=== PATIENT | female | born 1990 | race Caucasian/White ===

== ENCOUNTER 2018-07-13 08:29 | Emergency (ER) | payer MEDICAID ==
--- NOTE | 2018-07-13 08:53 | EDM.PDOC ---
ED HPI GENERAL MEDICAL PROBLEM - General Stated Complaint: SWOLLEN FACE Time Seen by Provider: 07/13/18 08:29 Source of Information: Reports: Patient History Limitations: Reports: No Limitations - History of Present Illness INITIAL COMMENTS - FREE TEXT/NARRATIVE: 28 y.o.w.f in prev healthy condition came to the ed because of right facial swelling for 3 days. Pt was seen in the cling and given Abx without improvement. The swelling of he right face is getting worse. Pt was not able to find a dentist as of yet. No F/C no N/V/D, no Trauma to face. No CP, no SOB, no other acute med issues. BP 153/100 Pulse 111 RR 18 Pulse ox 98% on RA Temp 36.7 Onset Date: 07/11/18 Onset Time: 08:00 Duration: Day(s):, Getting Worse, Intermittent Location: Reports: Face Quality: Reports: Dull, Pressure Severity: Moderate Improves with: Reports: Rest Worsens with: Reports: Movement Context: Reports: Other (poor dentition) Associated Symptoms: Reports: No Other Symptoms Treatments RN MEDICAL INPATIENT SERVICES: Reports: Acetaminophen, Other (see below) (Augmentin) Right Face/Facial Pain Score (Numeric/FACES): 4 - Related Data Allergies Allergy/AdvReac Type Severity Reaction Status Date / Time No Known Allergies Allergy Verified 07/13/18 09:02 Home Meds: Home Meds Amoxicillin/Potassium Clav [Amox-Clav 875-125 mg Tablet] 1 tab PO Q6H 07/13/18 [ History] Hydrocodone/Acetaminophen [Hydrocodon-Acetaminophen 5-325] 1 tab PO BID [History] ED ROS ENT - Review of Systems Review Of Systems: See Below Constitutional: Reports: No Symptoms HEENT: Reports: Dental Pain, Other (swelling of left face) Respiratory: Reports: No Symptoms Cardiovascular: Reports: No Symptoms Endocrine: Reports: No Symptoms GI/Abdominal: Reports: No Symptoms : Reports: No Symptoms Musculoskeletal: Reports: No Symptoms Skin: Reports: No Symptoms Neurological: Reports: No Symptoms Psychiatric: Reports: No Symptoms Hematologic/Lymphatic: Reports: No Symptoms Immunologic: Reports: No Symptoms ED EXAM, ENT - Physical Exam Exam: See Below Exam Limited By: No Limitations General Appearance: Alert, WD/WN, Mild Distress Eye Exam: Bilateral Eye: Normal Inspection Ears: Normal External Exam, Normal Canal, Hearing Grossly Normal Nose: Normal Inspection, Normal Mucousa, No Blood Mouth/Throat: Normal Gums, Normal Lips, Normal Oropharynx, Dental Tenderness, Other (right buccal swelling) Head: Atraumatic, Facial Swelling (right face) Neck: Normal Inspection, Supple, Non-Tender, Full Range of Motion Respiratory/Chest: No Respiratory Distress, Lungs Clear, Normal Breath Sounds, Chest Non-Tender Cardiovascular: Normal Peripheral Pulses, Regular Rate, Rhythm, No Edema GI/Abdominal: Normal Bowel Sounds, Soft, Non-Tender, No Organomegaly, Pelvis Stable (Female) Exam: Deferred Rectal (Female) Exam: Deferred Back: Normal Inspection, Full Range of Motion Extremities: Normal Inspection, Normal Range of Motion, Non-Tender, No Pedal Edema, Normal Capillary Refill Neurological: Alert, Oriented, CN II-XII Intact, Normal Cognition, Normal Gait Psychiatric: Normal Affect, Normal Mood Skin: Warm, Dry, Intact, Normal Color, Rash (right face) Lymphatic: No Adenopathy Course - Vital Signs Text/Narrative:: 28 y.o.w.f in prev healthy condition came to the ed because of right facial swelling for 3 days. Pt was seen in the cling and given Abx without improvement. The swelling of he right face is getting worse. Pt was not able to find a dentist as of yet. No F/C no N/V/D, no Trauma to face. No CP, no SOB, no other acute med issues. BP 153/100 Pulse 111 RR 18 Pulse ox 98% on RA Temp 36.7 PE: WNWDW F with dental pain and left facial swelling Imaging: CT MaxFacial: Possible abscess tooth 5 and 6, cellulitis right face, as per RAD labs: CBC, BMP including Lactic acid: All Nl Impression: Toothache, Tooth abscess #5 and 6 Tx: Motrin 600mg, ICE. Pt took Augmentin for 1 day Reexam: Improved Plan: D/C with instructions Last Recorded V/S: Last Vital Signs Temp 36.7 C 07/13/18 08:29 Pulse 73 07/13/18 09:58 Resp 18 07/13/18 09:58 BP 117/70 07/13/18 09:58 Pulse Ox 100 07/13/18 09:58 - Orders/Labs/Meds Orders: Active Orders 24 hr Category Date Time Status Cooling Warming Measures [RC] ASDIRECTED Care 07/13/18 09:57 Active Ice Bag [Ice Therapy] [OM.PC] Routine Oth 07/13/18 09:57 Ordered Labs: Laboratory Tests 07/13/18 07/13/18 07/13/18 Range/Units 08:41 08:41 08:41 WBC 9.5 (4.5-12.0) X10-3/uL RBC 4.46 (3.23-5.20) x10(6)uL Hgb 14.0 (11.5-15.5) g/dL Hct 41.0 (30.0-51.3) % MCV 92.0 (80-96) fL MCH 31.4 (27.7-33.6) pg MCHC 34.1 (32.2-35.4) g/dL RDW 13.7 (11.5-15.5) % Plt Count 220 (125-369) X10(3)uL MPV 8.5 (7.4-10.4) fL Neut % (Auto) 71.6 (46-82) % Lymph % (Auto) 18.7 (13-37) % Schuyler % (Auto) 7.2 (4-12) % Eos % (Auto) 0 L (1.0-5.0) % Baso % (Auto) 2 (0-2) % Neut # (Auto) 6.8 (1.6-8.3) # Lymph # (Auto) 1.8 (0.6-5.0) # Schuyler # (Auto) 0.7 (0.0-1.3) # Eos # (Auto) 0.0 (0.0-0.8) # Baso # (Auto) 0.2 (0.0-0.2) # Sodium 138 (135-145) mmol/L Potassium 4.4 (3.5-5.3) mmol/L Chloride 103 (100-110) mmol/L Carbon Dioxide 27 (21-32) mmol/L BUN 18 (7-18) mg/dL Creatinine 0.9 (0.55-1.02) mg/dL Est Cr Clr Drug Dosing TNP Estimated GFR (MDRD) > 60 (>60) BUN/Creatinine Ratio 20.0 (9-20) Glucose 110 (80-116) mg/dL Lactic Acid 0.6 (0.4-2.2) mmol/L Calcium 9.1 (8.6-10.2) mg/dL Meds: Medications Discontinued Medications Generic Name Dose Route Start Last Admin Trade Name Curtis PRN Reason Stop Dose Admin Ibuprofen 600 mg 07/13/18 09:56 07/13/18 10:03 Motrin PO 07/13/18 09:57 600 mg ONETIME STA Administration Iopamidol 75 ml 07/13/18 09:02 07/13/18 09:15 Isovue-370 (76%) IV 07/13/18 09:03 75 ml ONETIME ONE Administration Departure - Departure Time of Disposition: 10:19 Disposition: Home, Self-Care 01 Condition: Good Clinical Impression: Tooth abscess - Discharge Information Instructions: Dental Abscess Referrals: PCP,None [Primary Care Provider] - Forms: ED Department Discharge Additional Instructions: Please cont your ABX, Please take motrin for pain. Apply ICE to right cheek, please f/u with a dentist a.s.a.pPlease come back if your symptoms get worse acutely - My Orders Last 24 Hours: My Active Orders 07/13/18 09:57 Cooling Warming Measures [RC] ASDIRECTED Ice Bag [Ice Therapy] [OM.PC] Routine - Assessment/Plan Last 24 Hours: My Active Orders 07/13/18 09:57 Cooling Warming Measures [RC] ASDIRECTED Ice Bag [Ice Therapy] [OM.PC] Routine
[2018-07-13] MEDS ORDERED: Iopamidol 755 Mg/ML 75 ML Bottle IV ONE (09:02)
[2018-07-13] MEDS ORDERED: Ibuprofen 600 MG Tab PO STA (09:56)
--- NOTE | 2018-07-13 11:08 | CT ---
INDICATION: Swollen right face, additional history of dental abscess, on antibiotics. CT MAXILLOFACIAL: Spiral axial imaging of the maxillofacial area with sagittal and coronal reconstructions was obtained 07/13/18 - no comparisons. Total exam DLP = 703.72 mGy-cm. At the first and second maxillary premolars, there are large dental caries, which are mirrored along the posterior and anterior aspects of those teeth respectively. The larger dental caries is in the second premolar. The immediate maxillary area surrounding those teeth appears intact. However, more superiorly at the lateral root of the first premolar, there is a small surrounding area of loss of cortex of the maxilla with decreased density. This may be an anatomic variant but could represent a small abscess formation. There does appear to be adjacent soft tissue increase in density, raising suspicion for an abscess in this area. Additionally, more peripherally to the teeth in the cheek area, there is extensive fat stranding, which extends laterally and posteriorly, somewhat inferiorly and superiorly, compatible with cellulitis. The paranasal sinuses appear to be well-aerated. The orbits appear to be intact. Mastoid air cells are well-aerated. IMPRESSION: Dental caries at the right maxillary first and second premolars on their adjoining surfaces, fairly large in size, especially the second, with possibility of a small abscess at the lateral root of the first premolar with adjacent soft tissue inflammation, including more peripheral cellulitis suggested. MTDD
== END 2018-07-13 10:28 | disposition home or self-care (01) ==
LOC: FB.ED 08:29
DX: K04.7 Periapical abscess without sinus (principal)
CPT/HCPCS: 36415; 70487; 80048; 83605; 85025; 99283; A9270; Q9967